=== PATIENT | female | born 1995 | race Caucasian/White ===

== ENCOUNTER 2016-11-06 09:29 | Emergency (ER) | payer BC ==
[2016-11-06 09:50] VITALS: BP 146/66
--- NOTE | 2016-11-06 10:48 | UC ---
Throat Pain/Nasal Norman HPI - HPI Summary HPI Summary: pt c/o sore throat, fever, chills X 3 days. Has history of strep throat. c/o difficulty swallowing and "white stuff on tonsils" - History of Current Complaint Chief Complaint: UCGeneralIllness Stated Complaint: SORE THROAT,FEVER Time Seen by Provider: 11/06/16 10:37 Hx Obtained From: Patient Hx Last Menstrual Period: ~10/16/16 ?: No Onset/Duration: Sudden Onset, Lasting Days Severity: Moderate Cough: None Associated Signs & Symptoms: Positive: Dysphagia, Fever - Allergies/Home Medications Allergies/Adverse Reactions: Allergies Allergy/AdvReac Type Severity Reaction Status Date / Time Amoxicillin Allergy Hives Verified 11/06/16 09:44 Azithromycin [From Zithromax] Allergy Hives Verified 11/06/16 09:44 PMH/Surg Hx/FS Hx/Imm Hx Previously Healthy: Yes - Surgical History Surgical History: None - Family History Known Family History: Positive: Hypertension, Diabetes - Social History Alcohol Use: Occasionally Substance Use Type: None Smoking Status (MU): Never Smoked Tobacco - Immunization History Most Recent Influenza Vaccination: July 2016 Review of Systems Constitutional: Fever, Chills, Fatigue Skin: Negative Eyes: Negative ENT: Sore Throat Respiratory: Negative Cardiovascular: Negative Gastrointestinal: Negative Genitourinary: Negative Motor: Negative Neurovascular: Negative Musculoskeletal: Negative Neurological: Negative Psychological: Negative All Other Systems Reviewed And Are Negative: Yes Physical Exam Triage Information Reviewed: Yes Appearance: Ill-Appearing Vital Signs: Initial Vital Signs Temp 98.4 F 11/06/16 09:42 Pulse 86 11/06/16 09:42 Resp 18 11/06/16 09:42 BP 146/66 11/06/16 09:42 Pulse Ox 100 11/06/16 09:42 Eye Exam: Normal ENT Exam: Other ENT: Positive: Tonsillar swelling, Tonsillar exudate Neck exam: Normal Respiratory Exam: Normal Cardiovascular Exam: Normal Musculoskeletal Exam: Normal Neurological Exam: Normal Psychological Exam: Normal Skin Exam: Normal Throat Pain/Nasal Course/Dx - Differential Dx/Diagnosis Differential Diagnosis/HQI/PQRI: Pharyngitis, Tonsillitis, Other Provider Diagnoses: tonsillitis Discharge - Discharge Plan Condition: Stable Disposition: HOME Prescriptions: Cephalexin CAP* [Keflex 500 CAP*] 500 mg PO Q12H #20 cap predniSONE TAB* [Deltasone TAB*] 20 mg PO DAILY #4 tab Patient Education Materials: Tonsillitis (ED) Referrals: Natividad Dangelo PA [Primary Care Provider] -
== END 2016-11-06 10:52 | disposition home or self-care (01) ==
LOC: UCCORT 09:29
DX: J03.90 Acute tonsillitis, unspecified (principal); Z88.1 Allergy status to other antibiotic agents; Z88.0 Allergy status to penicillin
CPT/HCPCS: 87651; 99212; G0463

== ENCOUNTER 2017-10-23 09:55 | Emergency (ER) | payer BC ==
[2017-10-23 10:04] VITALS: BP 149/81
--- NOTE | 2017-10-23 10:41 | UC ---
Fortino Cotton Julia, scribed for Romero Agustin MD on 10/23/17 at 1015 . General HPI - HPI Summary HPI Summary: This patient is a 22 year old F presenting to [facility] with a chief complaint of burning sore and swollen throat since yesterday. Patient reports fever. Patient denies cough. The patient rates the pain 8/10 in severity. Symptoms aggravated by swallowing. Patient has difficulty speaking. Patient has history of tonsillitis. She states she had relief from previous symptoms with Clindamycin. - History of Current Complaint Chief Complaint: UCGeneralIllness Stated Complaint: SORE THROAT Time Seen by Provider: 10/23/17 10:07 Hx Obtained From: Patient Hx Last Menstrual Period: 09/17 Onset/Duration: Lasting Days Timing: Constant Pain Intensity: 8 Pain Location at: throat Character: burning Aggravating: swallowing and speaking Associated Signs & Symptoms: Positive: Other - fever, difficulty speaking Similar Episode/Dx as: tonsillitis - Allergy/Home Medications Allergies/Adverse Reactions: Allergies Allergy/AdvReac Type Severity Reaction Status Date / Time Amoxicillin Allergy Hives Verified 11/06/16 09:44 Azithromycin [From Zithromax] Allergy Hives Verified 11/06/16 09:44 PMH/Surg Hx/FS Hx/Imm Hx Previously Healthy: Yes - Surgical History Surgical History: None - Family History Known Family History: Positive: Cardiac Disease, Hypertension, Diabetes, Other - CA - Social History Occupation: Employed Full-time - at assisted living facility Alcohol Use: Occasionally Substance Use Type: None Smoking Status (MU): Never Smoked Tobacco - Immunization History Most Recent Influenza Vaccination: July 2016 Review of Systems Constitutional: Fever ENT: Sore Throat Respiratory: Negative - cough All Other Systems Reviewed And Are Negative: Yes Physical Exam Triage Information Reviewed: Yes Appearance: Well-Appearing, No Pain Distress, Well-Nourished Vital Signs: Initial Vital Signs Temp 98.1 F 10/23/17 10:00 Pulse 103 10/23/17 10:00 Resp 17 10/23/17 10:00 BP 149/81 10/23/17 10:00 Pulse Ox 99 10/23/17 10:00 Vital Signs Reviewed: Yes ENT: Positive: Pharyngeal erythema, TMs normal. Negative: Nasal congestion, Nasal drainage Neck: Positive: Supple, Nontender Respiratory: Positive: Chest non-tender, Lungs clear, Normal breath sounds, No respiratory distress Cardiovascular: Positive: RRR, No Murmur Abdomen Description: Negative: Distended Musculoskeletal: Positive: Strength Intact, ROM Intact Neurological Exam: Normal Psychological: Positive: Normal Response To Family Skin Exam: Normal Course/Dx - Course Course Of Treatment: 22 yr old with pharyngitis, rx clinda. Elevated BP. Referred to PMD for recheck. - Differential Dx - Multi-Symptom Provider Diagnoses: elevated BP. Strep Pharyngitis Discharge - Discharge Plan Condition: Good Disposition: HOME Prescriptions: Clindamycin Cap(NF) [Clindamycin Cap 300 mg Cap(NF)] 300 mg PO Q6H #40 cap Patient Education Materials: Pharyngitis (ED), Hypertension (ED) Referrals: No Primary Care Phys,NOPCP [Primary Care Provider] - [facility] [place] [facility] [Outside] - 5 Days The documentation as recorded by the Fortino broderick Julia accurately reflects the service I personally performed and the decisions made by , Romero Agustin MD.
== END 2017-10-23 10:48 | disposition home or self-care (01) ==
LOC: UCEAST 09:55
DX: J02.0 Streptococcal pharyngitis (principal); R03.0 Elevated blood-pressure reading, without diagnosis of hypertension; Z88.0 Allergy status to penicillin
CPT/HCPCS: 87651; 99212; G0463

== ENCOUNTER 2018-08-06 20:24 | Emergency (ER) | payer BC, OTHER ==
[2018-08-06 20:54] VITALS: BP 149/71
--- NOTE | 2018-08-06 21:20 | UC ---
- HPI Summary HPI Summary: Patient is a 23-year-old female who presents emergency department for to stick to left thumb that occurred yesterday. Patient states she works at [employer] and went to check a patient's sugar yesterday and when she opened and there is a used needle on it which she pricked her left thumb with. Patient states she clean the area. She states that source patient has active hepatitis infection he is being treated for. Patient denies past medical history. Immunizations are up-to-date. Symptoms are moderate in severity. No current modifying factors. - History of Current Complaint Chief Complaint: UCWounds Stated Complaint: NEEDLE STICK EXPOSURE Time Seen by Provider: 08/06/18 21:17 PMH/Surg Hx/FS Hx/Imm Hx Previously Healthy: Yes - Surgical History Surgical History: None - Family History Known Family History: Positive: Cardiac Disease, Hypertension, Diabetes, Other - CA - Social History Occupation: Employed Full-time Lives: With Family Alcohol Use: None Substance Use Type: None Smoking Status (MU): Never Smoked Tobacco - Immunization History Most Recent Influenza Vaccination: July 2016 Most Recent Tetanus Shot: 2009 Review of Systems Skin: Other - Needle stick Is Patient Immunocompromised?: No All Other Systems Reviewed And Are Negative: Yes Physical Exam Triage Information Reviewed: Yes Appearance: Well-Appearing - Pt. sitting in chair in NAD Vital Signs: Initial Vital Signs Temp 98.8 F 08/06/18 20:49 Pulse 85 08/06/18 20:49 Resp 18 08/06/18 20:49 BP 149/71 08/06/18 20:49 Pulse Ox 100 08/06/18 20:49 Vital Signs Reviewed: Yes Eyes: Positive: Conjunctiva Clear Neck: Positive: Supple Musculoskeletal Exam: Normal Neurological Exam: Normal Psychological Exam: Normal Skin Exam: Normal Needlestick Course/Dx - Course Course Of Treatment: Pt. presenting after needle stick injury. Protocol blood work ordered. Pt. stuck with needle of source pt. with known hepatitic c according to pt. Pt. would like started on prophylactic treatment. 7 day supplies given. Pt. to call Dr. Levi's office tomorrow for a close f.u apt. for possible further testing and treatment. Pt. understands and agrees with plan. - Diagnoses Provider Diagnoses: Needle stick injury, Exposure to blood-borne pathogen Discharge - Sign-Out/Discharge Documenting (check all that apply): Patient Departure All imaging exams completed and their final reports reviewed: No Studies - Discharge Plan Condition: Good Disposition: HOME Patient Education Materials: Needle Stick Injuries (ED) Referrals: Cleveland LOPEZ,Fly Skaggs [Medical Doctor] - Natividad Dangelo PA [Primary Care Provider] - Additional Instructions: Schedule a follow up appointment with infectious disease, Dr. Levi--you may need further testing and treatment Take medication as directed Return to if symptoms change or worsen - Billing Disposition and Condition Condition: GOOD Disposition: Home
[2018-08-06] MEDS ORDERED: Tenofovir/Emtricitab 200/300 * TAB PO ONE (21:29)
[2018-08-06] MEDS ORDERED: Raltegravir* 400 MG TAB PO ONE (21:29)
[2018-08-07 10:51] LABS: ABS Basophils 0.1 10^3/ul (0-0.2); ABS Eosinophils 0.1 10^3/ul (0-0.6); ABS Lymphocytes 3.9 10^3/ul (1.0-4.8); ABS Monocytes 0.7 10^3/ul (0-0.8); ABS Neutrophils 6.8 10^3/ul (1.5-7.7); ABS Nucleated RBC 0 10^3/ul; Eosinophil % 1.3 % (0-6); Hematocrit 34 % (35-47); Hemoglobin 10.5 g/dl (12.0-16.0); Lymphocyte % 33.3 % (25-47); Mean Corpuscular HGB Conc 31 g/dl (31-36); Mean Corpuscular Hemoglobin 22 pg (27-31); Mean Corpuscular Volume 68 fL (80-97); Mean Platelet Volume 7.6 fL (7.4-10.4); Nucleated Red Blood Cells % 0.1; Platelet Count 276 10^3/ul (150-450); Red Cell Distribution Width 18 % (10.5-15); White Blood Count 11.6 10^3/ul (3.5-10.8)
[2018-08-07 10:58] LABS: EGFR Non-African American 104.5 (>60)
--- NOTE | 2018-08-08 12:54 | UC ---
- Progress Note Progress Note: PLEASE CALL PATIENT. HEPATITIS C NEG. NO ACTIVE HEPATITIS B HOWEVER SHE IS NOT IMMUNE. PLEASE ADVISE PATIENT SHE NEEDS TO INITIATE HEPATITIS B VACCINATION SERIES. FOLLOW-UP WITH HER PCP. - NOEMÍ THAKKAR M.D. Course/Dx - Diagnoses Provider Diagnoses: Needle stick injury, Exposure to blood-borne pathogen Discharge - Sign-Out/Discharge Documenting (check all that apply): Post-Discharge Follow Up All imaging exams completed and their final reports reviewed: No Studies - Discharge Plan Condition: Good Disposition: HOME Patient Education Materials: Needle Stick Injuries (ED) Referrals: Cleveland LOPEZ,Fly Skaggs [Medical Doctor] - Natividad Dangelo PA [Primary Care Provider] - Additional Instructions: Schedule a follow up appointment with infectious disease, Dr. Guthrie--you may need further testing and treatment Take medication as directed Return to UC if symptoms change or worsen - Billing Disposition and Condition Condition: GOOD Disposition: Home
== END 2018-08-06 22:15 | disposition home or self-care (01) ==
LOC: UCEAST 20:24
DX: S61.032A Puncture wound without foreign body of left thumb without damage to nail, initial encounter (principal); W46.1XXA Contact with contaminated hypodermic needle, initial encounter; Y93.F9 Activity, other caregiving; Y92.129 Unspecified place in nursing home as the place of occurrence of the external cause; Y99.0 Civilian activity done for income or pay; Z77.21 Contact with and (suspected) exposure to potentially hazardous body fluids
CPT/HCPCS: 36415; 80053; 84702; 85025; 85060; 86703; 86706; 86803; 87340; 99213; G0463

== ENCOUNTER 2019-10-06 18:35 | Emergency (ER) | payer BC, OTHER ==
--- NOTE | 2019-10-06 19:01 | UC ---
Throat Pain/Nasal Norman HPI - HPI Summary HPI Summary: Patient is a 24yo female presenting with R ear pain radiating into jaw, nasal congestion, and tender lymph node x2 days. States congestion started ~5 days ago. Denies sore throat. Notes fever on monday of 101. Denies any since. Denies chills and headache. Denies decreased ROM of jaw. States taking ibuprofen with minimal relief. Denies L ear symptoms. - History of Current Complaint Stated Complaint: CONGESTION, EAR PLUGGED Hx Obtained From: Patient Hx Last Menstrual Period: 07/05/18 - Allergies/Home Medications Allergies/Adverse Reactions: Allergies Allergy/AdvReac Type Severity Reaction Status Date / Time amoxicillin Allergy Hives Verified 10/06/19 19:02 azithromycin Allergy Hives Verified 10/06/19 19:02 PMH/Surg Hx/FS Hx/Imm Hx - Surgical History Surgical History: None - Family History Known Family History: Positive: Cardiac Disease, Hypertension, Diabetes, Other - [place] - Social History Alcohol Use: None Substance Use Type: None Smoking Status (MU): Never Smoked Tobacco - Immunization History Most Recent Influenza Vaccination: July 2016 Most Recent Tetanus Shot: 2009 Review of Systems All Other Systems Reviewed And Are Negative: Yes Constitutional: Positive: Fever - 101 2 days ago. Negative: Chills, Fatigue ENT: Positive: Ear Ache - R ear pain radiating into jaw, Sinus Congestion. Negative: Sore Throat, Nasal Discharge, Sinus Pain/Tenderness Respiratory: Positive: Negative. Negative: Cough Cardiovascular: Positive: Negative Musculoskeletal: Positive: Negative. Negative: Myalgia Neurological: Negative: Headache Physical Exam Triage Information Reviewed: Yes Appearance: Well-Appearing, No Pain Distress, Well-Nourished Vital Signs: Vital Signs (72 hours) 10/06/19 18:55 Temperature 99.3 F Pulse Rate 87 Respiratory 10 Rate Blood Pressure 152/78 (mmHg) O2 Sat by Pulse 100 Oximetry Vital Signs Reviewed: Yes Eyes: Positive: Conjunctiva Clear ENT: Positive: Hearing grossly normal, Pharynx normal, Nasal congestion, TM bulging - right, TM red - right, Uvula midline. Negative: Tonsillar swelling, Tonsillar exudate, Trismus, Muffled voice, Hoarse voice, Sinus tenderness Neck: Positive: Supple, Tenderness @ - right postauricular node, Enlarged Nodes @ - right postauricular node Respiratory Exam: Normal Respiratory: Positive: Lungs clear, Normal breath sounds, No respiratory distress Cardiovascular Exam: Normal Cardiovascular: Positive: RRR Neurological: Positive: Alert Psychological: Positive: Age Appropriate Behavior Skin Exam: Normal Throat Pain/Nasal Course/Dx - Course Course Of Treatment: Discussed AOM with patient. I treated with cefdinir. States she has taken cephalosporins in past without issue. Instructed to continue with symptomatic treatment including otc analgesics and decongestant. Instructed to follow up with pcp if symptoms persist. Patient voiced understanding and agreed with treatment plan. - Differential Dx/Diagnosis Provider Diagnosis: Acute otitis media with effusion of left ear Discharge ED - Sign-Out/Discharge Documenting (check all that apply): Patient Departure All imaging exams completed and their final reports reviewed: No Studies - Discharge Plan Condition: Stable Disposition: HOME Prescriptions: Cefdinir cap* [Cefdinir 300 MG cap (NF)] 300 mg PO BID #14 cap Patient Education Materials: Ear Infection (ED) Referrals: Natividad Dangelo PA [Primary Care Provider] - If Needed Additional Instructions: Take cefdinir as prescribed for treatment of your ear infection. Take an over the counter decongestant, such as mucinex, to help relieve symptoms. You may continue with ibuprofen or tylenol for pain relief. Follow up with your primary care provider if your symptoms do not resolve within 7 days. - Billing Disposition and Condition Condition: STABLE Disposition: Home
[2019-10-06 19:02] VITALS: BP 152/78
== END 2019-10-06 19:24 | disposition home or self-care (01) ==
LOC: UCEAST 18:35
DX: H65.192 Other acute nonsuppurative otitis media, left ear (principal); R09.81 Nasal congestion; Z88.0 Allergy status to penicillin; Z88.1 Allergy status to other antibiotic agents
CPT/HCPCS: 99212; G0463